=== PATIENT | female | born 1980 | race Caucasian/White ===

== ENCOUNTER 2018-11-25 17:38 | Outpatient (REF) | payer MEDICAID, SELFPAY ==
--- NOTE | 2018-11-25 15:30 | PAPFT_PTH ---
PAT[facility]: Cheryl Rodriguez [id number] AGE/SX: 38/F ROOM: RE11/25/[address]: Nyasia Hernandez : 1980 BED: DIS: 11/25/2018 SPEC #: [id number] RECD: 11/26/18 12:50 STATUS: KATE WALKER #: [id number] ROBERT: 11/25/18 15:[address]: Nyasia Thomason DEPT: [facility] Cytology RECD BY: Bre Yang Tissues: 1 - CX/ENDOCX FOR PAP SMEARS Procedures: PAP THIN PREP/[facility] Screening HPV DNA PROBE Comments: [id number] (CHLAMYDIA/GC)
[2018-11-27 14:01] LABS: Chlamydia Result Negative; GC Result Negative; Specimen Description SEE COMMENTS
== END 2018-11-25 17:58 ==
LOC: NCHCN 17:38
PROVIDERS: PCP Nurse Practitioner Family; Visit Provider Nurse Practitioner Family
DX: Z12.4 Encounter for screening for malignant neoplasm of cervix (principal); Z11.51 Encounter for screening for human papillomavirus (HPV); R87.820 Cervical low risk human papillomavirus (HPV) DNA test positive
CPT/HCPCS: 87491; 87591; 88142; 87624

== ENCOUNTER 2019-06-22 14:24 | Outpatient (REF) | payer MEDICAID, SELFPAY ==
[2019-06-24 13:03] LABS: Chlamydia Result Negative (Negative); GC Result Negative (Negative)
== END 2019-06-22 14:44 ==
LOC: NCHCN 14:24
PROVIDERS: PCP Nurse Practitioner Family; Visit Provider Nurse Practitioner Family
DX: Z11.3 Encounter for screening for infections with a predominantly sexual mode of transmission (principal); R30.0 Dysuria
CPT/HCPCS: 87491; 87591

== ENCOUNTER 2020-04-06 16:07 | Outpatient (REF) | payer MEDICAID, SELFPAY ==
[2020-04-07 15:46] LABS: Chlamydia Result Negative (Negative); GC Result Negative (Negative)
== END 2020-04-06 16:27 ==
LOC: NCHCN 16:07
PROVIDERS: PCP Nurse Practitioner Family; Visit Provider Nurse Practitioner Community Health
DX: Z11.3 Encounter for screening for infections with a predominantly sexual mode of transmission (principal); Z91.89 Other specified personal risk factors, not elsewhere classified
CPT/HCPCS: 87491; 87591

== ENCOUNTER 2021-05-19 18:58 | Outpatient (REF) | payer MEDICAID, SELFPAY | END 2021-05-19 18:59 | disposition home or self-care (01) | LOC: NCHCN 18:58 | PROVIDERS: PCP Nurse Practitioner Family; Visit Provider Registered Nurse | DX: E71.32 Disorders of ketone metabolism (principal) | CPT/HCPCS: 87086 ==